=== PATIENT | male | born 1985 | race African-American/Black ===

== ENCOUNTER 2018-06-11 08:54 | Emergency (ER) | payer SELFPAY ==
[2018-06-11] MEDS: HYDROCODONE/APAP (5/325) TAB PO (09:27)
[2018-06-11] MEDS: ONDANSETRON (ODT) 4 MG TAB ODT (09:27)
== END 2018-06-11 10:33 | disposition home or self-care (01) ==
LOC: FTE 08:54
DX: M25.512 Pain in left shoulder (principal); J45.909 Unspecified asthma, uncomplicated
CPT/HCPCS: 73000; 73030; 99283-25

== ENCOUNTER 2018-07-12 11:16 | Emergency (ER) | payer SELFPAY ==
[2018-07-12 11:53] LABS: ADD MAN DIFF? NO
[2018-07-12 11:56] LABS: WHITE BLOOD COUNT 4.5 10^3/ul (4.8-10.8)
[2018-07-12 11:56] LABS: BASOPHILS % 0.7 % (0.0-2.0); EOSINOPHILS # 0.4 10^3/ul (0.0-0.5); EOSINOPHILS % 9.1 % (0.0-7.0); HEMATOCRIT 41.7 % (42.0-52.0); HEMOGLOBIN 13.7 g/dl (14.0-18.0); LYMPHOCYTES # 2.2 10^3/ul (0.8-2.9); LYMPHOCYTES % 49.4 % (15.0-51.0); MEAN CORPUSCULAR HEMOGLOBIN 28.1 pg (29.0-33.0); MEAN CORPUSCULAR HGB CONC 32.9 g/dl (32.0-37.0); MEAN CORPUSCULAR VOLUME 85.6 fl (82.0-101.0); MEAN PLATELET VOLUME 10.8 fl (7.4-10.4); MONOCYTE # 0.4 10^3/ul (0.3-0.9); MONOCYTES % 9.8 % (0.0-11.0); NEUTROPHIL # 1.4 10^3/ul (1.6-7.5); NEUTROPHILS % 30.8 % (39.0-77.0); PLATELET COUNT 285 10^3/UL (140-415); RED BLOOD COUNT 4.87 10^6/ul (4.70-6.10); RED CELL DISTRIBUTION WIDTH 12.8 % (11.5-14.5)
[2018-07-12 11:58] LABS: ADD UMIC NO; UR ASCORBIC ACID NEGATIVE (NEGATIVE); UR BILIRUBIN (Dip) NEGATIVE (NEGATIVE); UR BLOOD (Dip) NEGATIVE (NEGATIVE); UR CLARITY CLEAR (CLEAR); UR COLOR YELLOW (YELLOW); UR GLUCOSE (Dip) NEGATIVE (NEGATIVE); UR KETONES (Dip) NEGATIVE (NEGATIVE); UR LEUKOCYTE ESTERASE (Dip) NEGATIVE Leu/ul (NEGATIVE); UR NITRITE (Dip) NEGATIVE (NEGATIVE); UR SPECIFIC GRAVITY (Dip) 1.027 (1.003-1.030); UR TOTAL PROTEIN (Dip) NEGATIVE (NEGATIVE); UR UROBILINOGEN (Dip) 1+ mg/dL (NEGATIVE)
[2018-07-12] MEDS: BELLADONNA/PHENOBARBITAL TAB PO (12:07)
[2018-07-12] MEDS: ONDANSETRON 4 MG INJ IV (12:07)
[2018-07-12] MEDS: morphine 4 MG/ML VIAL IV (12:07)
[2018-07-12] MEDS: SOD CHLORIDE 0.9% 1,000 ML IV (12:08)
[2018-07-12] MEDS: LIDOCAINE/MYLANTA 40 ML BTL PO (12:08)
[2018-07-12 12:12] LABS: ALANINE AMINOTRANSFERASE 38 IU/L (13-69); ALBUMIN 4.3 g/dl (3.3-4.9); ALBUMIN/GLOBULIN RATIO 1.38; ALKALINE PHOSPHATASE 62 IU/L (42-121); ANION GAP 7 (5-13); ASPARTATE AMINO TRANSFERASE 27 IU/L (15-46); BILIRUBIN,INDIRECT 0.4 mg/dl (0-1.1); BILIRUBIN,TOTAL 0.4 mg/dl (0.2-1.3); BLOOD UREA NITROGEN 19 mg/dl (7-20); CALCIUM 9.5 mg/dl (8.4-10.2); CARBON DIOXIDE 29 mmol/L (21-31); CHLORIDE 105 mmol/L (97-110); CREATININE 1.02 mg/dl (0.61-1.24); Estimated GFR > 60 mL/min (>60); GLUCOSE 98 mg/dl (70-220); LIPASE 44 U/L (23-300); POTASSIUM 4.4 mmol/L (3.5-5.1); SODIUM 141 mmol/L (135-144); TOTAL PROTEIN 7.4 g/dl (6.1-8.1)
[2018-07-12] MEDS: SOD CHLORIDE 0.9% 100 ML (12:17)
[2018-07-12] MEDS: IOHEXOL 300MG/ML 150 ML BTL (12:17)
[2018-07-12] MEDS: POLYETHYLENE GLYCOL 17 GM PACKET PO (14:24)
== END 2018-07-12 14:32 | disposition home or self-care (01) ==
LOC: FTE 14:32
DX: K59.00 Constipation, unspecified (principal)
CPT/HCPCS: 36415; 74177; 80053; 81003; 83690; 85025; 96361; 96374; 96375; 99285-25